=== PATIENT | female | born 1960 | race Caucasian/White ===

== ENCOUNTER 2020-07-30 12:55 | Day surgery (SDC) | payer OTHER ==
[~2020-07-30] VITALS: Ht 162.6 cm; Wt 56.2 kg
[2020-07-30 13:10] VITALS: BP 127/78
[2020-07-30 19:42] VITALS: BP 124/58
== END 2020-07-30 19:50 ==
LOC: DS 12:55
PROVIDERS: ATTEND Internal Medicine Gastroenterology
DX: R19.5 Other fecal abnormalities (principal); D12.5 Benign neoplasm of sigmoid colon; Z79.82 Long term (current) use of aspirin
CPT/HCPCS: 45378; J1200; J1610; J2250; J2310; J3010; J3490